=== PATIENT | female | born 1945 | race Caucasian/White ===

== ENCOUNTER → 2016-09-04 | Outpatient (CLI) | payer MEDICARE, OTHER ==
[~2016-09-04] MED LIST: ADULT LOW DOSE81 MG PO; BENADRYL 25MG C25 MG PO; HYDROCHLOROTHIA25 MG PO; TYLENOL 500 MG500 MG PO; VOLTAREN EC 5050 MG PO; ZEBETA10 MG PO
== END ==
LOC: RAD 08-30 09:00
PROVIDERS: Orthopaedic Surgery
PROC: 0S993ZZ Drainage of Right Hip Joint, Percutaneous Approach (ICD-10-PCS; principal; 2016-09-04)
DX: M25.451 Effusion, right hip (principal)
CPT/HCPCS: 87015; 87070; 87075; 87102; 87116; 87205; 89051; 89060; Q9962

== ENCOUNTER → 2016-09-17 | Outpatient (CLI) | payer MEDICARE, OTHER | LOC: LAB 13:14 | DX: T84.84XA Pain due to internal orthopedic prosthetic devices, implants and grafts, initial encounter (principal) | CPT/HCPCS: 36415; 86140 ==